=== PATIENT | male | born 1985 | race African-American/Black ===

== ENCOUNTER 2021-02-01 10:49 | Emergency (ER) | payer MEDICAID ==
[~2021-02-01] VITALS: Ht 190.5 cm; Wt 105.0 kg
[2021-02-01 10:50] VITALS: BP 158/93
[2021-02-01] MEDS ORDERED: NAPR-681 PO (11:24)
[2021-02-01] MEDS ORDERED: AMOX-424 PO (11:24)
[2021-02-01] MEDS ORDERED: LORA10CA PO (11:24)
== END 2021-02-01 11:44 | disposition home or self-care (01) ==
LOC: ER 10:49
DX: J32.9 Chronic sinusitis, unspecified (principal); F14.10 Cocaine abuse, uncomplicated
CPT/HCPCS: 99283

== ENCOUNTER 2023-10-01 22:02 | Emergency (ER) | payer MEDICAID, OTHER ==
[~2023-10-01] VITALS: Ht 188 cm; Wt 115.0 kg
[~2023-10-01 22:02] MED LIST: AMOX-424 PO; LORA10CA PO; NAPR-681 PO
[2023-10-01 22:04] VITALS: BP 140/80; PULSE 90; TEMP 98.4; O2SAT 98
[2023-10-01] MEDS: FLUORESCEIN SODIUM 1MG/STRIP BOTHEYE ONE (23:15)
[2023-10-01] MEDS: TETRACAINE 0.5% OPHTH DROPS 4ML BOTHEYE ONE (23:15)
[2023-10-02] MEDS: TETRACAINE 0.5% OPHTH DROPS 4ML BOTHEYE NR (02:40)
[2023-10-02] MEDS: FLUORESCEIN SODIUM 1MG/STRIP BOTHEYE NR (02:40)
[2023-10-02] MEDS ORDERED: OCUFLX EACHEYE (02:58)
[2023-10-02 08:30] VITALS: RESP 18
== END 2023-10-02 02:50 | disposition home or self-care (01) ==
LOC: ER 22:16
DX: H57.89 Other specified disorders of eye and adnexa (principal); Z79.899 Other long term (current) drug therapy
CPT/HCPCS: 99283

== ENCOUNTER 2024-07-19 17:14 | Emergency (ER) | payer OTHER ==
[~2024-07-19] VITALS: Ht 185.4 cm; Wt 82.0 kg
[~2024-07-19 17:14] MED LIST changes: +OCUFLX EACHEYE
[2024-07-19 17:25] VITALS: BP 150/100; PULSE 70; RESP 18; TEMP 36.7; O2SAT 98
[2024-07-19] MEDS ORDERED: KETOROLAC 30MG/ML VIAL IM ONE (17:45)
[2024-07-19] MEDS ORDERED: ACETAMINOPHEN 325MG TABLET PO ONE (17:45)
[2024-07-19] MEDS ORDERED: IBUP-2030 MT (19:16)
== END 2024-07-19 21:47 | disposition left against medical advice (07) ==
LOC: ER 17:22
DX: S93.402A Sprain of unspecified ligament of left ankle, initial encounter (principal); J45.909 Unspecified asthma, uncomplicated; I10 Essential (primary) hypertension; Z79.899 Other long term (current) drug therapy; Y04.0XXA Assault by unarmed brawl or fight, initial encounter; Y93.89 Activity, other specified; Y92.89 Other specified places as the place of occurrence of the external cause; Y99.8 Other external cause status
CPT/HCPCS: 73610; 73630; 99284; Z7610